=== PATIENT | female | born 1935 | race Caucasian/White ===

== ENCOUNTER 2016-03-31 15:42 | Outpatient (CLI) | payer MEDICARE ==
[2016-03-31 16:23] LABS: Anion Gap 12 mmol/L (10-20); BUN (Urea Nitrogen) 19 mg/dL (9.8-20.1); Calc. Creatinine Clearance 0 mL/min (70-130); Calcium 9.1 mg/dL (7.8-10.44); Carbon Dioxide 21 mmol/L (23-31); Chloride 108 mmol/L (98-107); Estimated GFR-MDRD 63
[2016-03-31 18:26] LABS: #Basophils 0.1 thou/uL (0.0-0.2); #Eosinphils 0.1 thou/uL (0.0-0.7); #Lymphocytes 2.1 thou/uL (1.20-3.40); #Monocytes 0.8 thou/uL (0.11-0.59); #Neutrophils 3.4 thou/uL (1.40-6.50); %Eosinophils 1.7 % (0.0-10.0); %Lymphocytes 32.3 % (21.0-51.0); %Monocytes 12.7 % (0.0-10.0); Hematocrit 35.2 % (36.0-47.0); Macrocytosis SLIGHT = 6-15 cells (100X) (0-5/hpf); Mean Platelet Volume 5.4 fL (7.4-10.4); Red Blood Cell (RBC) Count 3.24 mill/uL (4.20-5.40); White Blood Cell (WBC) Count 6.4 thou/uL (4.8-10.8)
== END 2016-03-31 15:43 | disposition home or self-care (01) ==
LOC: NAV LAB 15:42
PROVIDERS: ATTEND Family Medicine
DX: R09.89 Other specified symptoms and signs involving the circulatory and respiratory systems (principal)
CPT/HCPCS: 36415; 80048; 85025

== ENCOUNTER 2016-05-11 12:14 | Outpatient (CLI) | payer MEDICARE | END 2016-05-11 12:15 | disposition home or self-care (01) | LOC: NAV LAB 12:14 | PROVIDERS: ATTEND Family Medicine | DX: E27.49 Other adrenocortical insufficiency (principal); M06.9 Rheumatoid arthritis, unspecified | CPT/HCPCS: 36415; 82533; 86038; 86200; 86430 ==

== ENCOUNTER 2016-07-17 11:10 | Inpatient (IN) | payer MEDICARE ==
[2016-07-17] MEDS ORDERED: Ondansetron ODT 4 MG TAB PO PRN ×2 (12:39→12:43)
[2016-07-17] MEDS ORDERED: Bisacodyl 5 MG TAB PO PRN (12:39)
[2016-07-17] MEDS ORDERED: Polyethylene Glycol 3350 17 GM Packet PO PRN (12:43)
[2016-07-17] MEDS ORDERED: Calcium Carbonate 500 MG ChewTAB PO PRN (12:43)
[2016-07-17] MEDS ORDERED: Acetaminophen 325 MG TAB PO PRN (12:43)
[2016-07-17] MEDS ORDERED: Nitroglycerin 0.4 MG TAB (25 Tab Bottle) SL PRN (12:43)
[2016-07-17] MEDS ORDERED: Simethicone Chewable 80 MG TAB PO PRN (12:43)
[2016-07-17] MEDS ORDERED: Bisacodyl 10 MG SUPP PR PRN (12:43)
[2016-07-17] MEDS ORDERED: Milk Of Magnesia 30 ML UDCUP PO PRN (12:43)
[2016-07-17] MEDS: HYDROcodone/Acetaminophen 5/325 mg Tablet PO SCH ×2 (14:17→21:01)
[2016-07-17] MEDS: Cyproheptadine 4 MG TAB PO SCH (16:39)
[2016-07-17] MEDS: Carvedilol 6.25 MG TAB PO SCH (16:40)
[2016-07-17] MEDS: CeleCOXIB 100 MG CAP PO SCH (20:50)
[2016-07-17] MEDS: Docusate 100 MG CAP PO SCH ×2 (20:50)
[2016-07-17] MEDS: Famotidine 20 MG TAB PO SCH (20:50)
[2016-07-17] MEDS: Lisinopril 10 MG TAB PO SCH (20:51)
[2016-07-17] MEDS: Megestrol Acetate 800 MG/20 ML UDCUP PO SCH (20:57)
[2016-07-18 05:09] LABS: Eosinophils 2 % (0-10); Hemoglobin 9.5 g/dL (12.0-16.0); Lymphocytes 26 % (21-51); MDiff Complete? YES; Macrocytosis MODERATE=16-30 cells (100X) (0-5/hpf); Mean Corpuscular HGB CONC 33.4 g/dL (32.0-36.0); Mean Corpuscular Hemoglobin 35.8 pg (27.0-31.0); Monocytes 10 % (0-10); Neutrophil 62 % (42-75); PLT Morphology Comment Appears Adequate; Platelet Count 170 thou/uL (130-400); RBC Distribution Width 11.5 % (11.5-14.5); Red Blood Cell (RBC) Count 2.65 mill/uL (4.20-5.40); White Blood Cell (WBC) Count 7.8 thou/uL (4.8-10.8)
[2016-07-18 05:25] LABS: ALT (SGPT) 19 U/L (8-55); AST (SGOT) 16 U/L (5-34); Albumin 2.7 g/dL (3.4-4.8); Alkaline Phosphatase 35 U/L (40-150); Anion Gap 12 mmol/L (10-20); BUN (Urea Nitrogen) 46 mg/dL (9.8-20.1); Bilirubin, Total 0.4 mg/dL (0.2-1.2); Calc. Creatinine Clearance 47 mL/min (70-130); Calcium 8.6 mg/dL (7.8-10.44); Carbon Dioxide 25 mmol/L (23-31); Chloride 108 mmol/L (98-107); Estimated GFR-MDRD 76; Globulin 2.6 g/dL (2.4-3.5); Glucose 95 mg/dL (83-110); Potassium 4.5 mmol/L (3.5-5.1); Protein, Total 5.3 g/dL (6.0-8.3); Sodium 140 mmol/L (136-145)
[2016-07-18] MEDS: Levothyroxine Sodium 100 MCG TAB PO SCH (05:32)
[2016-07-18] MEDS: Carvedilol 6.25 MG TAB PO SCH ×2 (08:00→17:04)
[2016-07-18] MEDS: Cyproheptadine 4 MG TAB PO SCH ×2 (08:01→17:04)
[2016-07-18] MEDS ORDERED: Hydrocortisone 10 mg Tablet PO SCH (09:00)
[2016-07-18] MEDS: Multivitamin W/ Minerals 1 TAB PO SCH (09:24)
[2016-07-18] MEDS: Docusate 100 MG CAP PO SCH ×3 (09:24→20:58)
[2016-07-18] MEDS: CeleCOXIB 100 MG CAP PO SCH ×2 (09:25→20:57)
[2016-07-18] MEDS: Aspirin 325 MG TAB PO SCH (09:25)
[2016-07-18] MEDS: Famotidine 20 MG TAB PO SCH ×2 (09:25→20:58)
[2016-07-18] MEDS: Lisinopril 10 MG TAB PO SCH ×2 (09:26→20:59)
[2016-07-18] MEDS: Megestrol Acetate 800 MG/20 ML UDCUP PO SCH ×2 (09:27→20:59)
[2016-07-18] MEDS: HYDROcodone/Acetaminophen 5/325 mg Tablet PO SCH ×3 (09:27→20:58)
--- NOTE | 2016-07-19 02:47 | HP ---
DATE OF SERVICE: 07/18/2016 CHIEF COMPLAINT: Persistent weakness. BRIEF HISTORY: This is a very pleasant, 81-year-old, female, who was admitted to [facility] with deconditioning, protein-calorie malnutrition, chronic adrenal insufficiency, and h yponatremia. Her hyponatremia pretty much resolved. Her chronic adrenal insufficiency was being ma naged with hydrocortisone supplementation, and her nutritional status improved with dietary consult and nutritional support. She continued to have significant flat affect and was noticed to be on ser traline and initially was started on citalopram. Then, I noticed that she was on sertraline and the citalopram was discontinued, and the sertraline dose was increased to 100 mg. Then, because of her neuropathy, she was also on Cymbalta 30 mg, so her sertraline was also discontinued, and her Cymbal ta was increased to 60. Currently, she states that she is doing better. She is tolerating her diet , denies any complaints, denies any lightheadedness or dizziness, and is mainly here for therapy. PAST MEDICAL HISTORY: 1. Chronic adrenal insufficiency. 2. Resolved hyponatremia. 3. Hypertension. 4. Hypothyroidism. 5. Protein-calorie malnutrition. 6. Depression. 7. Chronic pain. PAST SURGICAL HISTORY: 1. Hysterectomy. 2. Right humerus fracture repair. 3. Kyphoplasty. ALLERGIES: No known drug allergies. PSYCHOSOCIAL HISTORY: She apparently is , but is not having any support from her . I had a long discussion with her [id number]-txr, and apparently, she will be the one who will be hel ping to take care of her when she is discharged. No tobacco or alcohol abuse. FAMILY HISTORY: Noncontributory to current admission. REVIEW OF SYSTEMS: CARDIOVASCULAR: Denies any chest pain, shortness of breath, palpitations, paroxysmal nocturnal dysp ruma, orthopnea, pedal edema. RESPIRATORY: Denies any chronic cough, expectoration, or pleuritic type chest pain. GASTROINTESTINAL: Denies any nausea, vomiting, diarrhea, constipation, hematemesis, melena, hematoc hezia. GENITOURINARY: Denies any frequency, urgency, dysuria or hematuria. CYCLE MANAGER: No focal numbness, weakness, fainting spells. CURRENT MEDICATIONS: She has been admitted with the following medications: Tylenol 650 q.4 p.r.n., hydrocodone 5/325 one tablet t.i.d., amlodipine 2.5 mg daily, aspirin 325 daily, Colace 10 mg b.i.d . daily p.r.n., calcium 1000 mg q.i.d. p.r.n., carvedilol 12.5 mg b.i.d., Celebrex 100 mg b.i.d., Pe riactin 4 mg b.i.d., Cymbalta 60 mg daily, Pepcid 20 mg b.i.d., hydrocortisone 10 mg b.i.d., Levoxyl 100 mcg daily, lisinopril 10 mg b.i.d., Megace 400 mg b.i.d., Protonix 40 mg daily, MiraLax 17 gram s in 8 ounces of water daily, simethicone 80 mg p.o. at bedtime. PHYSICAL EXAMINATION: GENERAL: On examination, pleasant, 81-year-old, female, resting comfortably, in no acute distress. She responds appropriate to questions. She is alert, awake, and oriented x3. VITAL SIGNS: She is afebrile, heart rate is 74, respirations 18, oxygen saturation 97%, blood press ure is 155/72. HEENT: Normocephalic, atraumatic. Pupils are equal and reactive to light and accommodation. Extra ocular muscles are intact. NECK: No JVD, thyromegaly, cervical adenopathy, throat exudates, or carotid bruits. CARDIOVASCULAR: S1, S2 plus, rate and rhythm regular. RESPIRATORY SYSTEM: Normal vesicular breath sounds heard in all lung nick. ABDOMEN: Soft, nontender, bowel sounds heard in all quadrants. EXTREMITIES: Without cyanosis or clubbing. CENTRAL NERVOUS SYSTEM: Generalized weakness. LABORATORY VALUES: White count 7.8, H\T\H is 9.5 and 28.4, this was this morning. Sodium 140, pota ssium 4.5, BUN and creatinine is 46 and 0.74. Albumin is 2.7. IMPRESSION: 1. Chronic adrenal insufficiency. 2. Resolved hyponatremia. 3. Hypertension. 4. Hypothyroidism. 5. Chronic pain. 6. Depression. 7. Improving malnutrition. PLAN: 1. Continue physical therapy and occupational therapy. 2. Nutritional support. 3. Continue current medications. 4. DVT and stress ulcer prophylaxis. 5. Decubitus precautions. 6. Routine laboratory values. 7. PT/OT consult, evaluate, and treat. 8. No family at the bedside.
[2016-07-19] MEDS: Levothyroxine Sodium 100 MCG TAB PO SCH (05:37)
[2016-07-19] MEDS: Carvedilol 6.25 MG TAB PO SCH ×2 (07:28→16:59)
[2016-07-19] MEDS: Cyproheptadine 4 MG TAB PO SCH ×2 (07:29→16:59)
[2016-07-19] MEDS: Megestrol Acetate 800 MG/20 ML UDCUP PO SCH ×2 (09:02→20:41)
[2016-07-19] MEDS: Famotidine 20 MG TAB PO SCH ×2 (09:05→20:40)
[2016-07-19] MEDS: CeleCOXIB 100 MG CAP PO SCH ×2 (09:06→20:40)
[2016-07-19] MEDS: Aspirin 325 MG TAB PO SCH (09:06)
[2016-07-19] MEDS: HYDROcodone/Acetaminophen 5/325 mg Tablet PO SCH ×3 (09:07→20:40)
[2016-07-19] MEDS: Lisinopril 10 MG TAB PO SCH ×2 (09:07→20:41)
[2016-07-19] MEDS: Multivitamin W/ Minerals 1 TAB PO SCH (09:08)
[2016-07-19] MEDS: Docusate 100 MG CAP PO SCH ×2 (09:08→20:40)
--- NOTE | 2016-07-19 13:48 | PRG ---
DATE OF SERVICE: 07/19/2016 SUBJECTIVE: Ms. Pickering is resting. She is arousable. She denies any complaints. Discussed with nursing and no concerns. OBJECTIVE: VITAL SIGNS: She is afebrile. Heart rate is 78, respirations are 15, oxygen saturation is 96% and blood pressure is 137/68. CARDIOVASCULAR SYSTEM: S1 and S2 plus. RESPIRATORY SYSTEM: Normal vesicular breath sounds. ABDOMEN: Soft and nontender. Bowel sounds are heard in all quadrants. EXTREMITIES: Without cyanosis or clubbing. Peripheral pulses are palpable. CENTRAL NERVOUS SYSTEM: Grossly nonfocal. IMPRESSION: 1. Hyponatremia, which has resolved. 2. Chronic adrenal insufficiency. 3. Hypertension. 4. Depression. 5. Deconditioning. 6. Protein-calorie malnutrition. PLAN: 1. Continue current medications. 2. Nutritional support. 3. Deep venous thrombosis and stress ulcer prophylaxis. 4. Decubitus precautions. 5. Routine laboratory values. 6. No family at the bedside.
[2016-07-20] MEDS: Levothyroxine Sodium 100 MCG TAB PO SCH (06:14)
[2016-07-20] MEDS: Cyproheptadine 4 MG TAB PO SCH ×2 (08:07→16:55)
[2016-07-20] MEDS: Carvedilol 6.25 MG TAB PO SCH ×2 (08:07→16:55)
[2016-07-20] MEDS: Aspirin 325 MG TAB PO SCH (08:08)
[2016-07-20] MEDS: CeleCOXIB 100 MG CAP PO SCH ×2 (08:08→21:17)
[2016-07-20] MEDS: Docusate 100 MG CAP PO SCH ×2 (08:08→21:17)
[2016-07-20] MEDS: HYDROcodone/Acetaminophen 5/325 mg Tablet PO SCH ×3 (08:09→21:18)
[2016-07-20] MEDS: Famotidine 20 MG TAB PO SCH ×2 (08:09→21:17)
[2016-07-20] MEDS: Lisinopril 10 MG TAB PO SCH ×2 (08:11→21:17)
[2016-07-20] MEDS: Multivitamin W/ Minerals 1 TAB PO SCH (08:11)
[2016-07-20] MEDS: Megestrol Acetate 800 MG/20 ML UDCUP PO SCH ×2 (08:17→21:18)
[2016-07-21 01:16] LABS: Bilirubin Negative (Negative); Blood, Urine Negative (Negative); Clarity Clear (Clear); Glucose, Urine (Dipstick) Negative (Negative); Leukocyte Negative (Negative); Nitrite Negative (Negative); Protein, Urine (Dipstick) Negative (Neg-Trace)
[2016-07-21 01:41] LABS: RBC/HPF None Seen HPF (0-3)
[2016-07-21 01:42] LABS: Bacteria/HPF 3+ HPF (None Seen); Squamous Epithelial None Seen HPF (0-3)
[2016-07-21] MEDS: Levothyroxine Sodium 100 MCG TAB PO SCH (06:33)
[2016-07-21] MEDS: Cyproheptadine 4 MG TAB PO SCH ×2 (06:33→16:47)
[2016-07-21] MEDS: Carvedilol 6.25 MG TAB PO SCH ×2 (07:54→16:47)
[2016-07-21] MEDS: HYDROcodone/Acetaminophen 5/325 mg Tablet PO SCH ×3 (07:55→20:32)
[2016-07-21] MEDS: Lisinopril 10 MG TAB PO SCH ×2 (07:58→20:33)
[2016-07-21] MEDS: CeleCOXIB 100 MG CAP PO SCH ×2 (08:26→20:33)
[2016-07-21] MEDS: Aspirin 325 MG TAB PO SCH (08:26)
[2016-07-21] MEDS: Docusate 100 MG CAP PO SCH ×2 (08:26→20:32)
[2016-07-21] MEDS: Famotidine 20 MG TAB PO SCH ×2 (08:27→20:33)
[2016-07-21] MEDS: Megestrol Acetate 800 MG/20 ML UDCUP PO SCH ×2 (08:27→20:33)
[2016-07-21] MEDS: Multivitamin W/ Minerals 1 TAB PO SCH (08:27)
[2016-07-21] MEDS: Ergocalciferol 1.25 MG(50,000 UNITS) CAP PO SCH (08:33)
[2016-07-21] MEDS ORDERED: Bisacodyl 10 MG SUPP PR PRN (15:36)
[2016-07-21] MEDS ORDERED: Milk Of Magnesia 30 ML UDCUP PO PRN (15:36)
--- NOTE | 2016-07-22 00:17 | PRG ---
DATE OF SERVICE: 07/21/2016 SUBJECTIVE: Ms. Pickering is doing well. Still has a flat affect, still not doing much with the rapy. I had a long discussion with her, encouraged her to do more, so she can go home. OBJECTIVE: VITAL SIGNS: She is afebrile, heart rate is 78, respiratory rate 18, oxygen saturation 95%, blood p ressure this morning was 146/67. CARDIOVASCULAR: S1, S2 plus. RESPIRATORY: Normal vesicular breath sounds. ABDOMEN: Soft, nontender, bowel sounds heard in all quadrants. EXTREMITIES: Without cyanosis or clubbing. IMPRESSION: 1. Chronic adrenal insufficiency. 2. Hypertension. 3. Resolved hyponatremia. 4. Depression. 5. Improving protein-calorie malnutrition. 6. Chronic pain. PLAN: 1. Adjust blood pressure medications. 2. Increase Cymbalta to 60 mg b.i.d. 3. Encourage activity. 4. DVT and stress ulcer prophylaxis. 5. Decubitus precautions. 6. Routine laboratory values. 7. Dr. Davison construction supervisor this weekend.
[2016-07-22] MEDS: Levothyroxine Sodium 100 MCG TAB PO SCH (05:44)
[2016-07-22] MEDS: Cyproheptadine 4 MG TAB PO SCH ×2 (07:45→16:52)
[2016-07-22] MEDS: Megestrol Acetate 800 MG/20 ML UDCUP PO SCH ×2 (08:16→20:33)
[2016-07-22] MEDS: Aspirin 325 MG TAB PO SCH (08:17)
[2016-07-22] MEDS: Carvedilol 6.25 MG TAB PO SCH ×2 (08:17→16:52)
[2016-07-22] MEDS: HYDROcodone/Acetaminophen 5/325 mg Tablet PO SCH ×3 (08:17→20:33)
[2016-07-22] MEDS: Docusate 100 MG CAP PO SCH ×2 (08:19→20:34)
[2016-07-22] MEDS: Lisinopril 10 MG TAB PO SCH ×2 (08:19→20:33)
[2016-07-22] MEDS: Famotidine 20 MG TAB PO SCH ×2 (08:19→20:34)
[2016-07-22] MEDS: CeleCOXIB 100 MG CAP PO SCH ×2 (08:19→20:34)
[2016-07-22] MEDS: Multivitamin W/ Minerals 1 TAB PO SCH (08:19)
[2016-07-23] MEDS: Levothyroxine Sodium 100 MCG TAB PO SCH (05:42)
[2016-07-23] MEDS: Cyproheptadine 4 MG TAB PO SCH ×2 (08:00→16:30)
[2016-07-23] MEDS: Megestrol Acetate 800 MG/20 ML UDCUP PO SCH ×2 (08:33→20:40)
[2016-07-23] MEDS: Famotidine 20 MG TAB PO SCH ×2 (08:34→20:39)
[2016-07-23] MEDS: CeleCOXIB 100 MG CAP PO SCH ×2 (08:34→20:39)
[2016-07-23] MEDS: Lisinopril 10 MG TAB PO SCH ×2 (08:34→20:39)
[2016-07-23] MEDS: Docusate 100 MG CAP PO SCH ×2 (08:34→20:39)
[2016-07-23] MEDS: Multivitamin W/ Minerals 1 TAB PO SCH (08:35)
[2016-07-23] MEDS: Carvedilol 6.25 MG TAB PO SCH ×2 (08:35→17:57)
[2016-07-23] MEDS: HYDROcodone/Acetaminophen 5/325 mg Tablet PO SCH ×3 (08:35→20:40)
[2016-07-23] MEDS: Aspirin 325 MG TAB PO SCH (08:35)
--- NOTE | 2016-07-23 13:15 | PRG ---
DATE OF SERVICE: 07/23/2016 SUBJECTIVE: The patient was sitting up in chair and eating lunch, appears to be eaten 50% of meals. Still has somewhat depressed affect, but appears to be more responsive today. Does state she is t jah. She also has a history of significant hypertension, which has been somewhat labile, but she has had no symptoms of headaches, or dizziness and a history of adrenal insufficiency, resolved with supplementation. Her most recent medication changes including increase in Cymbalta to 60 mg twice daily for her depression, but her blood pressure medications have remained stable on carvedilol 12.5 mg twice daily, lisinopril 20 mg twice daily, and amlodipine 2.5 mg daily. Her adrenal insufficien cy has been treated with hydrocodone 10 mg twice daily, but she is not on any Florinef, does not chela ear to have any orthostatic hypotension. ASSESSMENT: 1. Labile hypertension increased today. We will increase amlodipine to 5 mg nightly. 2. Adrenal insufficiency with no evidence of recurrent hyponatremia. No evidence of orthostatic hy potension. We will check orthostatic blood pressure levels and we will repeat base met profile in t he a.m. 3. Depression. Appears to be slightly improved on increased Cymbalta. 4. Deconditioning, cooperating somewhat well with therapy and most recent physical therapy note sta luann that the patient walked 10 feet with a rolling walker, still complaining of weakness and pain, b ut was independent on bed transfers, toilet transfers, chair transfers. PLAN: Increase amlodipine to 5 mg daily. Check orthostatic blood pressure. Repeat basic metabolic profile in the a.m. Continue Cymbalta as ordered. ADDENDUM: The patient is walking much more, up to 120 feet, 70 feet, 64 feet, 71 feet, but has some problems w ith cognition and cueing and safety and is working on this.
[2016-07-24] MEDS: Levothyroxine Sodium 100 MCG TAB PO SCH (05:51)
[2016-07-24] MEDS: Cyproheptadine 4 MG TAB PO SCH ×2 (08:00→16:20)
[2016-07-24] MEDS: Carvedilol 6.25 MG TAB PO SCH ×2 (08:00→16:20)
--- NOTE | 2016-07-24 08:13 | PRG ---
DATE OF SERVICE: 07/24/2016 SUBJECTIVE: The patient is lying in the bed. Rested well through the night, but does have some inc reased soreness and stiffness this a.m. because of the change in the weather. OBJECTIVE: VITAL SIGNS: Shows blood pressure is 155/70, pulse 72, respirations 16, O2 sats 95%, afebrile. LUNGS: Clear. CARDIAC: Examination showed regular rhythm. No gallops or murmurs. ABDOMEN: Soft and nontender. SKIN AND EXTREMITIES: Show no edema. ASSESSMENT: 1. Stable hypertension. 2. Chronic adrenal insufficiency with resolved hyponatremia, stable. 3. Depression, possibly slowly improving. 4. Chronic pain, on Cymbalta. Will give ibuprofen today. 5. Malnutrition with increased appetite. PLAN: Ibuprofen 400 every 4 hours as needed for pain. Continue to stress up out of the bed, walkin g today. Continue DVT and stress ulcer prophylaxis. Continue Cymbalta [address] Maribell mike to be back tomorrow.
[2016-07-24] MEDS: CeleCOXIB 100 MG CAP PO SCH ×2 (09:02→20:01)
[2016-07-24] MEDS: Famotidine 20 MG TAB PO SCH ×2 (09:02→20:01)
[2016-07-24] MEDS: Aspirin 325 MG TAB PO SCH (09:02)
[2016-07-24] MEDS: Docusate 100 MG CAP PO SCH ×2 (09:02→20:01)
[2016-07-24] MEDS: Multivitamin W/ Minerals 1 TAB PO SCH (09:03)
[2016-07-24] MEDS: HYDROcodone/Acetaminophen 5/325 mg Tablet PO SCH ×3 (09:03→20:00)
[2016-07-24] MEDS: Megestrol Acetate 800 MG/20 ML UDCUP PO SCH ×2 (09:03→20:01)
[2016-07-24] MEDS: Lisinopril 10 MG TAB PO SCH ×2 (09:04→20:01)
[2016-07-24 16:55] LABS: Anion Gap 13 mmol/L (10-20); BUN (Urea Nitrogen) 35 mg/dL (9.8-20.1); Calc. Creatinine Clearance 44 mL/min (70-130); Calcium 8.2 mg/dL (7.8-10.44); Carbon Dioxide 22 mmol/L (23-31); Chloride 112 mmol/L (98-107); Estimated GFR-MDRD 71; Glucose 120 mg/dL (83-110); Potassium 4.5 mmol/L (3.5-5.1); Sodium 142 mmol/L (136-145)
[2016-07-25] MEDS: Levothyroxine Sodium 100 MCG TAB PO SCH (05:47)
[2016-07-25] MEDS: Cyproheptadine 4 MG TAB PO SCH ×2 (07:36→16:40)
[2016-07-25] MEDS: Carvedilol 6.25 MG TAB PO SCH ×2 (07:36→16:40)
[2016-07-25] MEDS: Lisinopril 10 MG TAB PO SCH ×2 (07:36→20:12)
[2016-07-25] MEDS: Aspirin 325 MG TAB PO SCH (08:00)
[2016-07-25] MEDS: Docusate 100 MG CAP PO SCH ×2 (08:01→20:13)
[2016-07-25] MEDS: CeleCOXIB 100 MG CAP PO SCH ×2 (08:01→20:12)
[2016-07-25] MEDS: HYDROcodone/Acetaminophen 5/325 mg Tablet PO SCH ×3 (08:02→20:11)
[2016-07-25] MEDS: Famotidine 20 MG TAB PO SCH ×2 (08:02→20:13)
[2016-07-25] MEDS: Megestrol Acetate 800 MG/20 ML UDCUP PO SCH ×2 (08:03→20:13)
[2016-07-25] MEDS: Multivitamin W/ Minerals 1 TAB PO SCH (08:03)
[2016-07-26] MEDS: Levothyroxine Sodium 100 MCG TAB PO SCH (05:57)
[2016-07-26] MEDS: Cyproheptadine 4 MG TAB PO SCH ×2 (07:40→16:30)
[2016-07-26] MEDS: Carvedilol 6.25 MG TAB PO SCH ×2 (08:08→17:31)
[2016-07-26] MEDS: HYDROcodone/Acetaminophen 5/325 mg Tablet PO SCH ×3 (08:42→20:12)
[2016-07-26] MEDS: Lisinopril 10 MG TAB PO SCH ×2 (08:44→20:11)
[2016-07-26] MEDS: Aspirin 325 MG TAB PO SCH (08:44)
[2016-07-26] MEDS: Multivitamin W/ Minerals 1 TAB PO SCH (08:45)
[2016-07-26] MEDS: Famotidine 20 MG TAB PO SCH ×2 (08:45→20:12)
[2016-07-26] MEDS: CeleCOXIB 100 MG CAP PO SCH ×2 (08:45→20:32)
[2016-07-26] MEDS: Megestrol Acetate 800 MG/20 ML UDCUP PO SCH ×2 (08:46→20:10)
[2016-07-26] MEDS: Docusate 100 MG CAP PO SCH ×2 (08:46→20:10)
--- NOTE | 2016-07-26 13:42 | PRG ---
DATE OF SERVICE: 07/26/2016 SUBJECTIVE: Ms. Pickering is doing well, denies any complaints, resting comfortably. She is up in her wheelchair. Her [id number] is here. They can reinforced the need for her to really wor k with therapy, otherwise she will need to be discharged to a shelter facility. Therapy not es from this morning; she walked about 120 feet, had 2 breaks, about 4 minutes each. They documente d gait is slow and unsteady. The plan is to continue therapy because she has not met any of her goa ls yet. OBJECTIVE: VITAL SIGNS: She is afebrile, heart rate is 83, respirations 20, oxygen saturation is 93%, blood pr essure was this morning 183/81 at 8:08, after her blood pressure medicines 145/76. CARDIOVASCULAR: S1, S2 plus. RESPIRATORY: Normal vesicular breath sounds. ABDOMEN: Soft, nontender, bowel sounds heard in all quadrants. EXTREMITIES: Without cyanosis or clubbing. IMPRESSION: 1. Hypertension, not well controlled. 2. Depression. We will increase Cymbalta to b.i.d. 3. Deconditioning. 4. Chronic adrenal insufficiency. 5. Resolved hyponatremia. 6. Hypertension. PLAN: 1. Increase her amlodipine at night from 2.5 to 10 mg. 2. Continue carvedilol b.i.d. 3. She is on lisinopril 20 b.i.d. 4. Low sodium diet. 5. Increase Cymbalta for her depression. 6. Physical therapy. 7. Routine laboratory values. 8. Discussed with [id number] in detail and all questions answered.
[2016-07-27] MEDS: Levothyroxine Sodium 100 MCG TAB PO SCH (05:01)
[2016-07-27 05:50] LABS: Anion Gap 14 mmol/L (10-20); BUN (Urea Nitrogen) 30 mg/dL (9.8-20.1); Calc. Creatinine Clearance 46 mL/min (70-130); Calcium 8.7 mg/dL (7.8-10.44); Carbon Dioxide 23 mmol/L (23-31); Chloride 108 mmol/L (98-107); Estimated GFR-MDRD 76; Glucose 100 mg/dL (83-110); Potassium 4.5 mmol/L (3.5-5.1); Sodium 140 mmol/L (136-145)
[2016-07-27 05:58] LABS: #Basophils 0.1 thou/uL (0.0-0.2); #Eosinphils 0.1 thou/uL (0.0-0.7); #Neutrophils 8.1 thou/uL (1.40-6.50); %Basophils 0.5 % (0.0-1.0); %Eosinophils 0.5 % (0.0-10.0); %Lymphocytes 17.6 % (21.0-51.0); %Monocytes 9.2 % (0.0-10.0); %Neutrophils 72.2 % (42.0-75.0); Hemoglobin 11.5 g/dL (12.0-16.0); MDiff Complete? YES; Macrocytosis MARKED = >30 cells (100X) (0-5/hpf); Mean Corpuscular HGB CONC 31.9 g/dL (32.0-36.0); Mean Corpuscular Hemoglobin 34.5 pg (27.0-31.0); Mean Platelet Volume 6.7 fL (7.4-10.4); PLT Morphology Comment Appears Adequate; Platelet Count 215 thou/uL (130-400); RBC Distribution Width 11.8 % (11.5-14.5); Red Blood Cell (RBC) Count 3.34 mill/uL (4.20-5.40); White Blood Cell (WBC) Count 11.2 thou/uL (4.8-10.8)
[2016-07-27] MEDS: Docusate 100 MG CAP PO SCH ×2 (08:09→20:39)
[2016-07-27] MEDS: Megestrol Acetate 800 MG/20 ML UDCUP PO SCH ×2 (08:09→20:41)
[2016-07-27] MEDS: Famotidine 20 MG TAB PO SCH ×2 (08:09→20:40)
[2016-07-27] MEDS: CeleCOXIB 100 MG CAP PO SCH ×2 (08:10→20:39)
[2016-07-27] MEDS: Cyproheptadine 4 MG TAB PO SCH ×2 (08:10→16:17)
[2016-07-27] MEDS: HYDROcodone/Acetaminophen 5/325 mg Tablet PO SCH ×3 (08:10→20:40)
[2016-07-27] MEDS: Multivitamin W/ Minerals 1 TAB PO SCH (08:10)
[2016-07-27] MEDS: Aspirin 325 mg Enteric Coated Tablet PO SCH (08:10)
[2016-07-27] MEDS: Carvedilol 6.25 MG TAB PO SCH ×2 (08:14→16:17)
[2016-07-27] MEDS: Lisinopril 10 MG TAB PO SCH ×2 (08:15→20:41)
[2016-07-28] MEDS: Levothyroxine Sodium 100 MCG TAB PO SCH (06:07)
[2016-07-28] MEDS: Aspirin 325 mg Enteric Coated Tablet PO SCH (08:22)
[2016-07-28] MEDS: Megestrol Acetate 800 MG/20 ML UDCUP PO SCH ×2 (08:22→20:35)
[2016-07-28] MEDS: CeleCOXIB 100 MG CAP PO SCH ×2 (08:22→20:33)
[2016-07-28] MEDS: Docusate 100 MG CAP PO SCH ×2 (08:23→20:33)
[2016-07-28] MEDS: Cyproheptadine 4 MG TAB PO SCH ×2 (08:23→17:23)
[2016-07-28] MEDS: Carvedilol 6.25 MG TAB PO SCH ×2 (08:23→17:23)
[2016-07-28] MEDS: Famotidine 20 MG TAB PO SCH ×2 (08:23→20:34)
[2016-07-28] MEDS: Multivitamin W/ Minerals 1 TAB PO SCH (08:23)
[2016-07-28] MEDS: HYDROcodone/Acetaminophen 5/325 mg Tablet PO SCH ×3 (08:24→20:34)
[2016-07-28] MEDS: Lisinopril 10 MG TAB PO SCH ×2 (08:24→20:35)
[2016-07-28] MEDS: Ergocalciferol 1.25 MG(50,000 UNITS) CAP PO SCH (08:29)
--- NOTE | 2016-07-28 13:33 | PRG ---
DATE OF SERVICE: 07/28/2016 SUBJECTIVE: Ms. Pickering is doing better. She denies any complaints. She is up in a wheelchai r. She has been ambulating. She denies any concerns or questions. She states that she is eating b davonte. Discussed with nursing and no concerns. OBJECTIVE: VITAL SIGNS: She is afebrile, heart rate is 83, and respiration is 18, oxygen saturation 96%, blood pressure 175/81. CARDIOVASCULAR: S1, S2 plus. RESPIRATORY: Normal vesicular breath sounds. ABDOMEN: Soft, nontender, bowel sounds heard in all quadrants. EXTREMITIES: Without cyanosis or clubbing. LABORATORY DATA: Her white count is 11.2, H\T\H is 11.5 and 36.1, improved from 9.5. Sodium 140, p otassium 4.5, BUN and creatinine is 30 and 0.74. IMPRESSION: 1. Hypertension, not well controlled. 2. Chronic adrenal insufficiency. 3. Resolved hyponatremia. 4. Improving deconditioning. 5. Improving depression. PLAN: 1. Adjust blood pressure medications, she is on Norvasc 10 mg at night that was increased 2 days ag o, carvedilol 12.5 b.i.d., and lisinopril 20 b.i.d. I am going to increase her carvedilol to 25 b.i .d. 2. Continue heart healthy diet. 3. Physical therapy. 4. Nutritional support. 5. Continue to monitor Routine laboratory values. 6. Deep venous thrombosis and stress ulcer prophylaxis. 7. No family at the bedside.
[2016-07-29] MEDS: Levothyroxine Sodium 100 MCG TAB PO SCH (05:28)
[2016-07-29] MEDS: Docusate 100 MG CAP PO SCH ×2 (09:00→20:37)
[2016-07-29] MEDS: Megestrol Acetate 800 MG/20 ML UDCUP PO SCH ×2 (09:00→20:37)
[2016-07-29] MEDS: CeleCOXIB 100 MG CAP PO SCH ×2 (09:00→20:37)
[2016-07-29] MEDS: Multivitamin W/ Minerals 1 TAB PO SCH (09:00)
[2016-07-29] MEDS: Famotidine 20 MG TAB PO SCH ×2 (09:00→20:37)
[2016-07-29] MEDS: Cyproheptadine 4 MG TAB PO SCH ×2 (09:00→16:30)
[2016-07-29] MEDS: Carvedilol 6.25 MG TAB PO SCH ×2 (09:00→17:00)
[2016-07-29] MEDS: Aspirin 325 mg Enteric Coated Tablet PO SCH (09:00)
[2016-07-29] MEDS: HYDROcodone/Acetaminophen 5/325 mg Tablet PO SCH ×3 (09:00→21:22)
[2016-07-29] MEDS: Lisinopril 10 MG TAB PO SCH ×2 (09:05→20:38)
[2016-07-30 01:08] LABS: Bilirubin Negative (Negative); Blood, Urine Negative (Negative); Clarity Slightly Cloudy (Clear); Glucose, Urine (Dipstick) Negative (Negative); Leukocyte Negative (Negative); Nitrite Positive (Negative); Protein, Urine (Dipstick) Negative (Neg-Trace)
[2016-07-30 01:10] LABS: Bacteria/HPF 4+ HPF (None Seen); RBC/HPF None Seen HPF (0-3); Squamous Epithelial 0-3 HPF (0-3); WBC/HPF 0-3 HPF (0-3)
[2016-07-30] MEDS: Levothyroxine Sodium 100 MCG TAB PO SCH (05:58)
[2016-07-30] MEDS: Cyproheptadine 4 MG TAB PO SCH ×2 (07:51→16:56)
[2016-07-30] MEDS: Carvedilol 6.25 MG TAB PO SCH ×2 (07:52→16:56)
[2016-07-30] MEDS: Aspirin 325 mg Enteric Coated Tablet PO SCH (08:17)
[2016-07-30] MEDS: Docusate 100 MG CAP PO SCH ×2 (08:17→20:21)
[2016-07-30] MEDS: CeleCOXIB 100 MG CAP PO SCH ×2 (08:17→20:21)
[2016-07-30] MEDS: HYDROcodone/Acetaminophen 5/325 mg Tablet PO SCH ×3 (08:17→20:24)
[2016-07-30] MEDS: Famotidine 20 MG TAB PO SCH ×2 (08:17→20:23)
[2016-07-30] MEDS: Lisinopril 10 MG TAB PO SCH ×2 (08:18→20:22)
[2016-07-30] MEDS: Multivitamin W/ Minerals 1 TAB PO SCH (08:19)
[2016-07-30] MEDS: Megestrol Acetate 800 MG/20 ML UDCUP PO SCH ×2 (08:19→20:24)
[2016-07-31] MEDS: Levothyroxine Sodium 100 MCG TAB PO SCH (07:28)
[2016-07-31] MEDS: Carvedilol 6.25 MG TAB PO SCH ×2 (07:29→16:28)
[2016-07-31] MEDS: Cyproheptadine 4 MG TAB PO SCH ×2 (07:29→16:28)
[2016-07-31] MEDS: Lisinopril 10 MG TAB PO SCH ×2 (07:30→21:03)
[2016-07-31] MEDS: Aspirin 325 mg Enteric Coated Tablet PO SCH (08:19)
[2016-07-31] MEDS: HYDROcodone/Acetaminophen 5/325 mg Tablet PO SCH ×3 (08:20→21:05)
[2016-07-31] MEDS: CeleCOXIB 100 MG CAP PO SCH ×2 (08:20→21:02)
[2016-07-31] MEDS: Docusate 100 MG CAP PO SCH ×2 (08:20→21:02)
[2016-07-31] MEDS: Famotidine 20 MG TAB PO SCH ×2 (08:20→21:03)
[2016-07-31] MEDS: Multivitamin W/ Minerals 1 TAB PO SCH (08:21)
[2016-07-31] MEDS: Megestrol Acetate 800 MG/20 ML UDCUP PO SCH ×2 (08:21→21:05)
[2016-07-31 17:52] VITALS: BMI 17.0
--- NOTE | 2016-08-01 01:40 | PRG ---
DATE OF SERVICE: 07/31/2016 HISTORY OF PRESENT ILLNESS: Ms. Sy is a very pleasant 81-year-old female that was transferred from [facility] for continued physical therapy and management of her chronic adrenal insufficiency or hypertension, malnutrition, and depression with chronic pain. OBJECTIVE: The patient states she is doing somewhat better, is began to eat better. Her vital sign s reveal blood pressure this evening is 129/58, pulse 75, respirations 20, O2 sat is 95%. Temperatu re max of 98.1. PHYSICAL EXAMINATION: GENERAL: This is a well-developed, well-nourished, thin white female in no apparent distress at thi s time. HEENT: Reveals normocephalic, nontraumatic cranium. Pupils are equally round and reactive. Extrao cular movements intact. Nose and throat are slightly dry. NECK: Supple, without masses, nodes or bruits. CHEST: Clear to auscultation. She has shallow breath sounds. No rales or rhonchi or wheezes are h eard. HEART: Reveals a regular rate and rhythm without murmurs, gallops, or rubs. ABDOMEN: Scaphoid, soft, nontender, without organomegaly. Normal bowel sounds are heard in all 4 q uadrants. GENITOURINARY EXAM: Deferred. EXTREMITIES: Reveal no clubbing, cyanosis or edema. ASSESSMENT: 1. Hypertension. 2. Hyponatremia, resolved. 3. Chronic renal insufficiency. 4. Generalized weakness with deconditioning. 5. Depression, which is slowly getting better. PLAN: 1. Continue to follow the patient's blood pressure. Carvedilol was increased to 25 mg b.i.d. a cou ple days ago. 2. Continue physical therapy and occupational therapy. 3. Continue to encourage the patient to eat better. 4. Continue healthy heart diet. 5. Continue to monitor the patient's labs as needed. 6. Continue DVT and stress ulcer prophylaxis. 7. Continued decubitus precautions. 8. No family is with her today.
--- NOTE | 2016-08-01 02:11 | PRG ---
DATE OF SERVICE: 07/30/2016 DATE OF ADMISSION: 07/17/2016 HISTORY OF PRESENT ILLNESS: Ms. Pickering is a very pleasant 81-year-old white female that was t r[facility]ferred from [facility] to [facility] for continued swing bed for physi jyothi therapy and occupational therapy. She was transferred under the care of Dr. Killian pacheco. He is watching her hypertension, hypothyroidism, chronic adrenal insufficiency, chronic pain, and de pression. She also has significant generalized weakness. Patient has had no complaints. She states she is gradually getting a little bit stronger, but her a ppetite is still very poor. PHYSICAL EXAMINATION: VITAL SIGNS: Revealed blood pressure was not available for the morning of , so we used the even ing of the , which was 122/57 with a pulse of 78-96, respirations 18, temperature 97.9. GENERAL: This is a well-developed, well-nourished, very thin white female, in no apparent distress. HEENT: Reveals normocephalic, nontraumatic cranium. Pupils are equally round. Nose and throat are slightly dry. NECK: Supple, without masses, nodes, or bruits. CHEST: Clear to auscultation. No rales, no rhonchi, no wheezes are heard. HEART: Reveals a regular rate and rhythm without murmurs, gallops, or rubs. ABDOMEN: Scaphoid, soft, nontender, without organomegaly. Normal bowel sounds are noted. GENITOURINARY: Deferred. EXTREMITIES: Reveal no clubbing, cyanosis, or edema, just generalized weakness. No labs were done. ASSESSMENT: 1. Hypertension, controlled at this time. 2. Chronic adrenal insufficiency. 3. Generalized weakness. 4. Hyponatremia, which has resolved. 5. Depression. PLAN: 1. Continue to follow the patient's blood pressure. At this time, Dr. Carrasco has adjusted her medic ations. We will leave it like that for about a week. 2. Continue physical therapy and occupational therapy. 3. Encourage the patient to eat because her nutrition is poor. 4. Continue DVT and stress ulcer prophylaxis. 5. Continue decubitus precautions.
[2016-08-01] MEDS: Levothyroxine Sodium 100 MCG TAB PO SCH (05:25)
[2016-08-01] MEDS: Carvedilol 6.25 MG TAB PO SCH ×2 (07:33→16:50)
[2016-08-01] MEDS: Cyproheptadine 4 MG TAB PO SCH ×2 (07:33→16:50)
[2016-08-01] MEDS: Docusate 100 MG CAP PO SCH ×2 (08:41→20:14)
[2016-08-01] MEDS: Lisinopril 10 MG TAB PO SCH ×2 (08:41→20:15)
[2016-08-01] MEDS: Aspirin 325 mg Enteric Coated Tablet PO SCH (08:41)
[2016-08-01] MEDS: Famotidine 20 MG TAB PO SCH ×2 (08:42→20:14)
[2016-08-01] MEDS: Megestrol Acetate 800 MG/20 ML UDCUP PO SCH ×2 (08:42→20:15)
[2016-08-01] MEDS: Multivitamin W/ Minerals 1 TAB PO SCH (08:42)
[2016-08-01] MEDS: CeleCOXIB 100 MG CAP PO SCH ×2 (08:42→20:14)
[2016-08-01] MEDS: HYDROcodone/Acetaminophen 5/325 mg Tablet PO SCH ×3 (08:46→20:14)
--- NOTE | 2016-08-01 18:14 | PRG ---
DATE OF ADMISSION: 07/17/2016 DATE OF PROGRESS NOTE: 08/01/2016 HISTORY OF PRESENT ILLNESS: Ms. Pickering is a very pleasant 81-year-old white female transferre d from [facility] for continued physical therapy and management of her chronic adren al insufficiency, hypertension, malnutrition, depression, and chronic pain. The patient states she is feeling somewhat better. Her pain is gradually getting better and she is less anxious and able to participate more. She has no complaints today. PHYSICAL EXAMINATION: VITAL SIGNS: Today reveal blood pressure this morning was 122/64, pulse 85-95, respirations 18, O2 sat 96%, temperature max of 98.5. GENERAL: This is a well-developed, well-nourished, very thin white female in no apparent distress a t this time. HEENT: Reveals normocephalic and nontraumatic cranium. Pupils are equally round and reactive. Ext raocular movements intact. Nose and throat are slightly dry. NECK: Supple, without masses, nodes or bruits. CHEST: Clear to auscultation. The patient continues to have shallow breath sounds. No rales, no r honchi, no wheezes or cough is heard. HEART: Reveals a regular rate and rhythm without murmurs, gallops or rubs. ABDOMEN: Scaphoid, soft, nontender, without organomegaly. Normal bowel sounds are noted in all 4 q uadrants. No rebound or guarding is noted. GENITOURINARY: Deferred. EXTREMITIES: Reveal no clubbing, cyanosis or edema. IMPRESSION: 1. Hypertension. 2. Hyponatremia, resolved. 3. Chronic renal insufficiency. 4. Generalized weakness and deconditioning. 5. Depression, which is slowly getting better. 6. Chronic pain, which is slowly getting better. PLAN: 1. Continue to follow the patient's blood pressure closely. 2. Continue carvedilol 25 mg b.i.d. 3. Continue to follow with physical therapy and occupational therapy. 4. Continue to encourage the patient to eat better. 5. Continue healthy heart diet. 6. Continue to monitor the patient's labs as needed. 7. Continue DVT and stress ulcer prophylaxis. 8. Continue decubitus precautions. 9. The family is with her again today.
[2016-08-02 05:18] LABS: #Eosinphils 0.1 thou/uL (0.0-0.7); #Lymphocytes 1.9 thou/uL (1.20-3.40); #Monocytes 1.1 thou/uL (0.11-0.59); #Neutrophils 7.6 thou/uL (1.40-6.50); %Basophils 0.4 % (0.0-1.0); %Eosinophils 0.5 % (0.0-10.0); %Lymphocytes 17.8 % (21.0-51.0); %Monocytes 10.1 % (0.0-10.0); %Neutrophils 71.2 % (42.0-75.0); Elliptocytes SLIGHT = 2-5 cells (100X) (0-1/hpf); Hemoglobin 10.9 g/dL (12.0-16.0); MDiff Complete? YES; Mean Corpuscular HGB CONC 32.9 g/dL (32.0-36.0); Mean Corpuscular Hemoglobin 34.8 pg (27.0-31.0); Mean Platelet Volume 5.7 fL (7.4-10.4); Ovalocytes MODERATE= 6-15 cells (100X) (0-1/hpf); PLT Morphology Comment Appears Adequate; Platelet Count 181 thou/uL (130-400); RBC Distribution Width 11.8 % (11.5-14.5); Red Blood Cell (RBC) Count 3.13 mill/uL (4.20-5.40); Spherocytes SLIGHT = 1-5 cells (100X) (None Seen); White Blood Cell (WBC) Count 10.6 thou/uL (4.8-10.8)
[2016-08-02] MEDS: Levothyroxine Sodium 100 MCG TAB PO SCH (06:18)
[2016-08-02] MEDS: Cyproheptadine 4 MG TAB PO SCH ×2 (08:28→17:12)
[2016-08-02] MEDS: Multivitamin W/ Minerals 1 TAB PO SCH (08:29)
[2016-08-02] MEDS: Aspirin 325 mg Enteric Coated Tablet PO SCH (08:29)
[2016-08-02] MEDS: Docusate 100 MG CAP PO SCH ×2 (08:29→20:38)
[2016-08-02] MEDS: Famotidine 20 MG TAB PO SCH ×2 (08:29→20:38)
[2016-08-02] MEDS: CeleCOXIB 100 MG CAP PO SCH ×2 (08:29→20:38)
[2016-08-02] MEDS: Megestrol Acetate 800 MG/20 ML UDCUP PO SCH ×2 (08:30→20:38)
[2016-08-02] MEDS: HYDROcodone/Acetaminophen 5/325 mg Tablet PO SCH ×3 (08:30→20:39)
[2016-08-02] MEDS: Lisinopril 10 MG TAB PO SCH ×2 (08:30→20:38)
[2016-08-02] MEDS: Carvedilol 6.25 MG TAB PO SCH ×2 (08:30→17:12)
--- NOTE | 2016-08-02 13:44 | PRG ---
DATE OF SERVICE: 08/02/2016 SUBJECTIVE: Ms. Pickering is doing well. Denies any complaints, resting comfortably. Some of h er family members in the room. She is doing better with her therapy. She is also eating better. S he is complaining of some urinary symptoms. She did have a culture done and the results just came b ack with E. coli. She apparently has a history of recurrent UTIs. We will start her on Levaquin. Blood pressure is improved with adjusting her blood pressure medicines. No other concerns or questi ons. OBJECTIVE: VITAL SIGNS: She is afebrile, heart rate is 79, respiration is 18, oxygen saturation is 96%, blood pressure is 122/62. CARDIOVASCULAR: S1, S2 plus. RESPIRATORY: Normal vesicular breath sounds. ABDOMEN: Soft, nontender, bowel sounds heard in all quadrants. EXTREMITIES: Without cyanosis or clubbing. She denies any lightheadedness or dizziness with standi ng. LABORATORY VALUES: Sodium 140, potassium 4.5, BUN and creatinine is 30 and 0.74. White count is 10 .6, H\T\H is 10.9 and 33.1 with a platelet count of 181. IMPRESSION: 1. Chronic adrenal insufficiency. 2. Resolved hyponatremia. 3. Recurrent urinary tract infection. 4. Deconditioning. 5. Depression. 6. Improving p.o. intake. PLAN: 1. Continue physical therapy. 2. Nutritional support. 3. Levaquin 500 mg daily for 10 days. 4. Deep venous thrombosis and stress ulcer prophylaxis. 5. Decubitus precautions. 6. Routine laboratory values. Discussed with the family in detail and all questions answered. This morning, she walked 15 feet x2 . She descended 5 steps, ambulated to bench and back. PLAN: Continue therapy, nutritional support, and routine laboratory values, Levaquin.
[2016-08-03] MEDS: Levothyroxine Sodium 100 MCG TAB PO SCH (06:08)
[2016-08-03] MEDS: Cyproheptadine 4 MG TAB PO SCH ×2 (08:09→16:45)
[2016-08-03] MEDS: Carvedilol 6.25 MG TAB PO SCH ×2 (08:09→16:45)
[2016-08-03] MEDS: Famotidine 20 MG TAB PO SCH ×2 (08:11→20:36)
[2016-08-03] MEDS: HYDROcodone/Acetaminophen 5/325 mg Tablet PO SCH ×3 (08:11→20:37)
[2016-08-03] MEDS: Aspirin 325 mg Enteric Coated Tablet PO SCH (08:11)
[2016-08-03] MEDS: Docusate 100 MG CAP PO SCH ×2 (08:11→20:36)
[2016-08-03] MEDS: CeleCOXIB 100 MG CAP PO SCH ×2 (08:11→20:36)
[2016-08-03] MEDS: Lisinopril 10 MG TAB PO SCH ×2 (08:12→20:37)
[2016-08-03] MEDS: Megestrol Acetate 800 MG/20 ML UDCUP PO SCH ×2 (08:13→20:37)
[2016-08-03] MEDS: Multivitamin W/ Minerals 1 TAB PO SCH (08:13)
[2016-08-04] MEDS: Levothyroxine Sodium 100 MCG TAB PO SCH (05:40)
[2016-08-04] MEDS: Cyproheptadine 4 MG TAB PO SCH ×2 (07:42→16:51)
[2016-08-04] MEDS: Carvedilol 6.25 MG TAB PO SCH ×2 (07:42→16:51)
[2016-08-04] MEDS: Aspirin 325 mg Enteric Coated Tablet PO SCH (09:04)
[2016-08-04] MEDS: Multivitamin W/ Minerals 1 TAB PO SCH (09:04)
[2016-08-04] MEDS: Lisinopril 10 MG TAB PO SCH ×2 (09:04→20:30)
[2016-08-04] MEDS: Megestrol Acetate 800 MG/20 ML UDCUP PO SCH ×2 (09:05→20:36)
[2016-08-04] MEDS: HYDROcodone/Acetaminophen 5/325 mg Tablet PO SCH ×3 (09:05→20:38)
[2016-08-04] MEDS: CeleCOXIB 100 MG CAP PO SCH ×2 (09:05→20:38)
[2016-08-04] MEDS: Famotidine 20 MG TAB PO SCH ×2 (09:05→20:37)
[2016-08-04] MEDS: Docusate 100 MG CAP PO SCH ×2 (09:05→20:38)
[2016-08-04] MEDS: Ergocalciferol 1.25 MG(50,000 UNITS) CAP PO SCH (09:08)
--- NOTE | 2016-08-04 13:42 | PRG ---
DATE OF SERVICE: 08/04/2016 SUBJECTIVE: Ms. Pickering is doing the same. Denies any complaints. She is working with therap y. Discussed with therapy and her . She is still not safe to go home alone, but with family training, and with somebody there 26/09 and with DME like a manual wheelchair and a bedside commode. is apparently having the bathroom remodeled. He is aware of the risks and that she is sti ll not safe to be independent and be left alone. Her 20 days is ending on Monday, so is ray lopez to talk to our medical staff director and try to figure out if he cannot afford to pay the 20% to stay until Monday so they can get more training or whether he wants to take her home on Monday. I advised him that if it is Monday then Dr. Davison is senior executive compensation analyst, who will be doing the discharge p aperwork, but I am going to write the prescriptions for her manual wheelchair and her bedside commod e now, but if it is Monday, then I will be here and I will take care after the discharge. is also not sure whether they want to go back and follow up with Dr. Tucker and I advised him that i t is always better to stick with the physician no knows them, but if it is their preference he can m merari whatever decision that works for him. OBJECTIVE: VITAL SIGNS: She is afebrile, heart rate is 83, respirations 18, blood pressure 147/71. CARDIOVASCULAR: S1, S2 plus. RESPIRATORY: Normal vesicular breath sounds. ABDOMEN: Soft, nontender, bowel sounds heard in all quadrants. EXTREMITIES: Without cyanosis or clubbing. CENTRAL NERVOUS SYSTEM: Improving deconditioning. IMPRESSION: 1. Chronic adrenal insufficiency. 2. Resolved hyponatremia. 3. Escherichia coli urinary tract infection. 4. Improved depression. 5. Improved hypertension. 6. Chronic pain. 7. Improving nutritional status. PLAN: 1. Continue physical therapy, nutritional support. 2. Finish Levaquin. 3. DVT and stress ulcer prophylaxis. 4. Decubitus precautions. 5. Continue physical therapy. 6. Family training. 7. Write prescription for bedside commode and wheelchair. 8. Dr. Davison senior executive compensation analyst this weekend. Discussed with the in detail and all questions answe red.
[2016-08-05] MEDS: Levothyroxine Sodium 100 MCG TAB PO SCH (05:45)
[2016-08-05] MEDS: CeleCOXIB 100 MG CAP PO SCH ×2 (08:33→20:10)
[2016-08-05] MEDS: Carvedilol 6.25 MG TAB PO SCH ×2 (08:33→17:05)
[2016-08-05] MEDS: Cyproheptadine 4 MG TAB PO SCH ×2 (08:33→17:05)
[2016-08-05] MEDS: Multivitamin W/ Minerals 1 TAB PO SCH (08:34)
[2016-08-05] MEDS: Docusate 100 MG CAP PO SCH ×2 (08:34→20:10)
[2016-08-05] MEDS: Aspirin 325 mg Enteric Coated Tablet PO SCH (08:34)
[2016-08-05] MEDS: Lisinopril 10 MG TAB PO SCH ×2 (08:34→19:50)
[2016-08-05] MEDS: Megestrol Acetate 800 MG/20 ML UDCUP PO SCH ×2 (08:35→20:10)
[2016-08-05] MEDS: Famotidine 20 MG TAB PO SCH ×2 (08:35→20:11)
[2016-08-05] MEDS: HYDROcodone/Acetaminophen 5/325 mg Tablet PO SCH ×3 (08:35→20:10)
[2016-08-06] MEDS: Cyproheptadine 4 MG TAB PO SCH (06:48)
[2016-08-06] MEDS: Levothyroxine Sodium 100 MCG TAB PO SCH (06:48)
[2016-08-06 07:22] VITALS: BP 186/87; TEMP 98.5
[2016-08-06] MEDS: Docusate 100 MG CAP PO SCH (08:45)
[2016-08-06] MEDS: Carvedilol 6.25 MG TAB PO SCH (08:45)
[2016-08-06] MEDS: Lisinopril 10 MG TAB PO SCH (08:46)
[2016-08-06] MEDS: Famotidine 20 MG TAB PO SCH (08:46)
[2016-08-06] MEDS: Megestrol Acetate 800 MG/20 ML UDCUP PO SCH (08:47)
[2016-08-06] MEDS: Multivitamin W/ Minerals 1 TAB PO SCH (08:47)
[2016-08-06] MEDS: CeleCOXIB 100 MG CAP PO SCH (08:47)
[2016-08-06] MEDS: Aspirin 325 mg Enteric Coated Tablet PO SCH (08:47)
[2016-08-06] MEDS: HYDROcodone/Acetaminophen 5/325 mg Tablet PO SCH (08:48)
== END 2016-08-06 12:30 | disposition home health service (06) | DRG 948 ==
LOC: NAV ACUTE 11:10
PROVIDERS: ADMIT Internal Medicine; ATTEND Internal Medicine
DX: R53.1 Weakness (principal); E46 Unspecified protein-calorie malnutrition; E27.40 Unspecified adrenocortical insufficiency; E87.1 Hypo-osmolality and hyponatremia; N39.0 Urinary tract infection, site not specified; Z68.1 Body mass index [BMI] 19.9 or less, adult; E03.9 Hypothyroidism, unspecified; Z79.82 Long term (current) use of aspirin; F32.9 Major depressive disorder, single episode, unspecified; G89.29 Other chronic pain; I10 Essential (primary) hypertension; B96.20 Unspecified Escherichia coli [E. coli] as the cause of diseases classified elsewhere
CPT/HCPCS: 36415; 80048; 80053; 81001; 85007; 85025; 85027; 87077; 87086; 87186; A4353; G8978-GP-CK; G8979-GP-CI

== ENCOUNTER 2016-08-24 15:47 | Inpatient (IN) | payer MEDICARE ==
[2016-08-24] MEDS ORDERED: Acetaminophen 500 MG TAB PO PRN (19:58)
[2016-08-24] MEDS ORDERED: Calcium Carbonate 500 MG ChewTAB PO PRN (19:58)
[2016-08-24] MEDS ORDERED: Milk Of Magnesia 30 ML UDCUP PO PRN (19:58)
[2016-08-24] MEDS ORDERED: Non-Formulary Item 1 EACH (Megestrol Acetate [Megace] 400 MG) PO SCH (21:00)
[2016-08-24] MEDS: CeleCOXIB 100 MG CAP PO SCH (21:59)
[2016-08-24] MEDS: Docusate 100 MG CAP PO SCH (21:59)
[2016-08-24] MEDS ORDERED: AMOXicillin 500 MG CAP PO SCH (22:00)
[2016-08-24] MEDS: HYDROcodone/Acetaminophen 5/325 mg Tablet PO SCH (22:00)
[2016-08-24] MEDS: Famotidine 20 MG TAB PO SCH (22:00)
[2016-08-24] MEDS: Lisinopril 20 MG TAB PO SCH (22:01)
[2016-08-24] MEDS: Megestrol Acetate 800 MG/20 ML UDCUP PO SCH (22:01)
[2016-08-24] MEDS: AMOXicillin 250 MG CAP PO SCH (22:01)
[2016-08-25 05:27] LABS: #Basophils 0.1 thou/uL (0.0-0.2); #Eosinphils 0.1 thou/uL (0.0-0.7); #Lymphocytes 3.5 thou/uL (1.20-3.40); #Monocytes 1.1 thou/uL (0.11-0.59); #Neutrophils 5.9 thou/uL (1.40-6.50); %Eosinophils 1.4 % (0.0-10.0); %Lymphocytes 32.3 % (21.0-51.0); %Monocytes 10.1 % (0.0-10.0); %Neutrophils 55.1 % (42.0-75.0); Hemoglobin 10.8 g/dL (12.0-16.0); MDiff Complete? YES; Mean Corpuscular HGB CONC 33.1 g/dL (32.0-36.0); Mean Corpuscular Hemoglobin 34.4 pg (27.0-31.0); Mean Platelet Volume 5.7 fL (7.4-10.4); Ovalocytes SLIGHT = 2-5 cells (100X) (0-1/hpf); PLT Morphology Comment Appears Adequate; Platelet Count 258 thou/uL (130-400); RBC Distribution Width 11.8 % (11.5-14.5); Red Blood Cell (RBC) Count 3.14 mill/uL (4.20-5.40); Tear Drops SLIGHT = 2-5 cells (100X) (0-1/hpf); White Blood Cell (WBC) Count 10.7 thou/uL (4.8-10.8)
[2016-08-25 05:35] LABS: Anion Gap 13 mmol/L (10-20); BUN (Urea Nitrogen) 38 mg/dL (9.8-20.1); Calc. Creatinine Clearance 42 mL/min (70-130); Carbon Dioxide 24 mmol/L (23-31); Chloride 105 mmol/L (98-107); Estimated GFR-MDRD 79; Glucose 103 mg/dL (83-110); Potassium 4.9 mmol/L (3.5-5.1); Sodium 137 mmol/L (136-145)
[2016-08-25] MEDS: AMOXicillin 250 MG CAP PO SCH ×3 (05:59→21:19)
[2016-08-25] MEDS: Cyproheptadine 4 MG TAB PO SCH ×2 (07:30→15:38)
[2016-08-25] MEDS: Carvedilol 6.25 MG TAB PO SCH ×2 (08:15→17:59)
[2016-08-25] MEDS ORDERED: Levothyroxine Sodium 100 MCG TAB PO SCH (09:00)
[2016-08-25] MEDS ORDERED: [UNRECOGNIZED DRUG - OTHER] PO SCH (09:00)
[2016-08-25] MEDS ORDERED: Hydrocortisone 10 mg Tablet PO SCH (09:00)
[2016-08-25] MEDS: Aspirin 325 MG TAB PO SCH (09:33)
[2016-08-25] MEDS: CeleCOXIB 100 MG CAP PO SCH ×2 (09:34→21:21)
[2016-08-25] MEDS: Famotidine 20 MG TAB PO SCH ×2 (09:34→21:21)
[2016-08-25] MEDS: Docusate 100 MG CAP PO SCH ×2 (09:34→21:19)
[2016-08-25] MEDS: Folic Acid 1 MG TAB PO SCH (09:34)
[2016-08-25] MEDS: Lisinopril 20 MG TAB PO SCH ×2 (09:35→21:21)
[2016-08-25] MEDS: Cyanocobalamin (Vitamin B-12) 1,000 MCG TAB PO SCH (09:35)
[2016-08-25] MEDS: HYDROcodone/Acetaminophen 5/325 mg Tablet PO SCH ×3 (09:38→21:22)
[2016-08-25] MEDS: Megestrol Acetate 800 MG/20 ML UDCUP PO SCH ×2 (10:33→21:19)
[2016-08-25] MEDS ORDERED: Multivitamin W/ Minerals 1 TAB PO SCH (11:00)
--- NOTE | 2016-08-25 13:53 | HP ---
DATE OF ADMISSION: 08/25/2016 DATE OF EXAMINATION AND DICTATION: 08/25/2016 REASON FOR ADMISSION: Recent urinary tract infection and L1 compression fracture for physical thera py. HISTORY OF PRESENTING ILLNESS: This is a very pleasant 81-year-old frail female who was i nitially admitted about 2 months ago to [facility] due to protein calorie malnutriti on, significant deconditioning, and chronic adrenal insufficiency. She improved enough, but still w as not ready to go home, so she was transferred to [facility] and continued therapy. Her dulox etine was increased to 60 mg b.i.d. and that seemed to help. Unfortunately, her Medicare day is exp ired. Family was unable to pay for therapy as private pay and she was discharged home with some DME . She apparently noticed significant pain when she was home, but no documented falls. Also, she wa s evaluated and is noticed to have L1 compression fracture. She was admitted to the hospital. She was also noticed to have Enterococcus UTI. She was started on vancomycin and then switched to oral amoxicillin. She has been transferred here for therapy. She was deemed not to be a candidate for k yphoplasty according to records. Currently she is somnolent, but arousable. She denies any complai nts. She denies any fever or chills. Denies any chest pain or shortness of breath. PAST MEDICAL HISTORY: 1. Chronic adrenal insufficiency. 2. Hyponatremia, which had resolved in the past. 3. Hypertension. 4. Hypothyroidism. 5. Protein calorie malnutrition. 6. Depression. 7. Chronic pain. PAST SURGICAL HISTORY: 1. Hysterectomy. 2. Right humerus fracture repair. 3. Kyphoplasty. ALLERGIES: No known drug allergies. PSYCHOSOCIAL HISTORY: No tobacco, alcohol, or IV drug abuse. FAMILY HISTORY: Noncontributory. MEDICATIONS: She has been admitted here with the following medications: 1. [place] 5/325 one tablet t.i.d. 2. Norvasc 10 mg daily. 3. Amoxicillin 500 mg t.i.d., we will continue it for a total of 10-14 days. 4. Aspirin 325 daily. 5. Carvedilol 12.5 b.i.d. 6. Celebrex 100 mg b.i.d. 7. Periactin 4 mg b.i.d. 8. Cymbalta 60 mg b.i.d. 9. Drisdol 1.25 mg every 7 days. 10. Pepcid 20 mg b.i.d. 11. Solu-CORTEF/hydrocortisone 10 mg b.i.d. 12. Lisinopril 20 mg b.i.d. 13. Levothyroxine 100 mcg daily. 14. Megace 400 mg b.i.d. REVIEW OF SYSTEMS: Cardiovascular System: Denies any chest pain, shortness of breath, palpitations , PND, orthopnea, pedal edema. Respiratory System: Denies any chronic cough, expectoration or pleu ritic type chest pain. Gastrointestinal System: Denies any nausea, vomiting, diarrhea, constipatio n, hematemesis, melena, hematochezia. Genitourinary System: Denies any frequency, urgency, dysuria or hematuria. Central Nervous System: No focal numbness, weakness, fainting spells except for gen eralized weakness. PHYSICAL EXAMINATION: GENERAL: Pleasant 81-year-old female resting comfortably, somnolent, but arousable. [place] es any complaints. She responds appropriately to questions. VITAL SIGNS: She is afebrile. Heart rate is 71, respirations 17, oxygen saturation is 97%, and blo od pressure is 124/65. HEENT: Normocephalic, atraumatic. Pupils equally reactive to light and accommodation. NECK: No JVD, thyromegaly, adenopathy, throat exudates or carotid bruits. CARDIOVASCULAR SYSTEM: S1 and S2+. RESPIRATORY SYSTEM: Normal vesicular breath sounds. ABDOMEN: Soft, nontender, bowel sounds heard in all quadrants. EXTREMITIES: Without cyanosis or clubbing. CENTRAL NERVOUS SYSTEM: Generalized weakness. LABORATORY VALUES: White count is 10.7, H\T\H is 10.8 and 32.6. Sodium 137, potassium 4.9, BUN and creatinine are 38 and 0.71. IMPRESSION: 1. Resolving urinary tract infection with Enterococcus. 2. L1 compression fracture. 3. Chronic adrenal insufficiency. 4. Hypothyroidism. 5. Hypertension. 6. Protein calorie malnutrition. 7. Depression. 8. Deconditioning. PLAN: 1. Continue current medications. 2. DVT and stress ulcer prophylaxis. 3. Decubitus precautions. 4. Physical therapy and occupational therapy evaluation and treat. 5. She may benefit from a TLSO brace. 6. Pain control. 7. Nutritional support. 8. Routine laboratory values. 9. No family at the bedside. 10. Poor long-term prognosis.
[2016-08-26] MEDS: AMOXicillin 250 MG CAP PO SCH ×3 (06:16→21:04)
[2016-08-26] MEDS: Levothyroxine Sodium 100 MCG TAB PO SCH (06:16)
[2016-08-26] MEDS: Cyproheptadine 4 MG TAB PO SCH ×2 (07:44→15:35)
[2016-08-26] MEDS: Docusate 100 MG CAP PO SCH ×2 (08:07→21:03)
[2016-08-26] MEDS: Multivitamin W/ Minerals 1 TAB PO SCH (08:07)
[2016-08-26] MEDS: Famotidine 20 MG TAB PO SCH ×2 (08:07→21:03)
[2016-08-26] MEDS: CeleCOXIB 100 MG CAP PO SCH ×2 (08:07→21:03)
[2016-08-26] MEDS: Aspirin 325 MG TAB PO SCH (08:08)
[2016-08-26] MEDS: Lisinopril 20 MG TAB PO SCH ×2 (08:08→21:04)
[2016-08-26] MEDS: Carvedilol 6.25 MG TAB PO SCH ×2 (08:08→17:08)
[2016-08-26] MEDS: Folic Acid 1 MG TAB PO SCH (08:09)
[2016-08-26] MEDS: HYDROcodone/Acetaminophen 5/325 mg Tablet PO SCH ×3 (08:09→21:03)
[2016-08-26] MEDS: Megestrol Acetate 800 MG/20 ML UDCUP PO SCH ×2 (08:09→21:04)
[2016-08-26] MEDS: Cyanocobalamin (Vitamin B-12) 1,000 MCG TAB PO SCH (08:09)
--- NOTE | 2016-08-26 11:46 | PRG ---
DATE OF SERVICE: 08/26/2016 SUBJECTIVE: Ms. Pickering is doing the same. She seems to be slightly more alert today. I disc ussed with therapy and she does have a TLSO brace and instructions for it. She should be wearing it when she is up out of bed. I encouraged the patient to get out of bed and to do more and eat well, so she can go home soon. Apparently the plan is for her to go home with family apparently family wa s trained the last time, but I am not sure what happened that she ended up in the hospital so soon, but the family is going to be trained again with therapy in caring for her with her daily activities as well as getting her in and out to brace. I advised therapy that she is medically stable and I a m just waiting for them to tell me when she is physically safe and stable to go home and then we ruchi l discharge her home. OBJECTIVE: VITAL SIGNS: She is afebrile, heart rate is 74, respiration is 18, oxygen saturation is 95%, blood pressure 150/71. CARDIOVASCULAR: S1, S2 plus. RESPIRATORY: Normal vesicular breath sounds. ABDOMEN: Soft, nontender, bowel sounds heard in all quadrants. EXTREMITIES: Without cyanosis or clubbing. IMPRESSION: 1. Chronic adrenal insufficiency. 2. L1 compression fracture. 3. Protein calorie malnutrition. 4. Depression. 5. Chronic pain. 6. Hypertension. PLAN: 1. Continue current medications. 2. TLSO brace when up and out of bed. 3. DVT and stress ulcer prophylaxis. 4. Encourage p.o. intake. 5. Decubitus precautions. 6. Routine laboratory values. 7. PT and OT. 8. Medically stable, when stable and safe from therapy standpoint we will discharge her home. 9. Dr. Davison micromatic hone operator this weekend.
[2016-08-27] MEDS: Levothyroxine Sodium 100 MCG TAB PO SCH (05:54)
[2016-08-27] MEDS: AMOXicillin 250 MG CAP PO SCH ×3 (05:54→22:28)
[2016-08-27] MEDS: Cyproheptadine 4 MG TAB PO SCH ×2 (08:19→17:02)
[2016-08-27] MEDS: Carvedilol 6.25 MG TAB PO SCH ×2 (08:19→17:03)
[2016-08-27] MEDS: Aspirin 325 MG TAB PO SCH (08:20)
[2016-08-27] MEDS: CeleCOXIB 100 MG CAP PO SCH ×2 (08:20→22:30)
[2016-08-27] MEDS: Folic Acid 1 MG TAB PO SCH (08:21)
[2016-08-27] MEDS: HYDROcodone/Acetaminophen 5/325 mg Tablet PO SCH ×3 (08:21→22:34)
[2016-08-27] MEDS: Famotidine 20 MG TAB PO SCH ×2 (08:21→22:30)
[2016-08-27] MEDS: Docusate 100 MG CAP PO SCH ×2 (08:21→22:28)
[2016-08-27] MEDS: Cyanocobalamin (Vitamin B-12) 1,000 MCG TAB PO SCH (08:21)
[2016-08-27] MEDS: Lisinopril 20 MG TAB PO SCH ×2 (08:22→22:28)
[2016-08-27] MEDS: Megestrol Acetate 800 MG/20 ML UDCUP PO SCH ×2 (08:23→22:29)
[2016-08-27] MEDS: Polyethylene Glycol 3350 17 GM Packet PO PRN (08:23)
[2016-08-27] MEDS: Multivitamin W/ Minerals 1 TAB PO SCH (08:23)
--- NOTE | 2016-08-27 11:42 | PRG ---
MEDICAL PROGRESS NOTE DATE OF PROGRESS NOTE: 08/27/2016 SUBJECTIVE: The patient feels better, more awake and alert last time in the hospital still very wea k, decreasing back pain. Apparently, she was falling at home after last admission. OBJECTIVE: VITAL SIGNS: Shows blood pressure is 123/60, temperature 98, pulse 74, respirations 18, O2 sat 96%. LUNGS: Clear. CARDIAC: Showed regular rhythm. ABDOMEN: Soft and nontender. SKIN AND EXTREMITIES: Showed no edema. NEUROLOGIC: Shows no focal findings only diffuse weakness. ASSESSMENT: Chronic renal insufficiency, improving L1 compression fractures, improving deconditioni ng, was still very weak and stable depression. PLAN: Continue PT, OT continued DVT and stress ulcer prophylaxis. Continue to wear a brace at all times when out of bed.
[2016-08-28] MEDS: Levothyroxine Sodium 100 MCG TAB PO SCH (06:13)
[2016-08-28] MEDS: AMOXicillin 250 MG CAP PO SCH ×3 (06:13→21:47)
[2016-08-28] MEDS: Carvedilol 6.25 MG TAB PO SCH ×2 (08:22→21:47)
[2016-08-28] MEDS: Cyproheptadine 4 MG TAB PO SCH ×2 (08:22→21:47)
[2016-08-28] MEDS: Aspirin 325 MG TAB PO SCH (08:23)
[2016-08-28] MEDS: Cyanocobalamin (Vitamin B-12) 1,000 MCG TAB PO SCH (08:24)
[2016-08-28] MEDS: Docusate 100 MG CAP PO SCH ×2 (08:24→21:47)
[2016-08-28] MEDS: Multivitamin W/ Minerals 1 TAB PO SCH (08:25)
[2016-08-28] MEDS: Megestrol Acetate 800 MG/20 ML UDCUP PO SCH ×2 (08:25→21:46)
[2016-08-28] MEDS: Lisinopril 20 MG TAB PO SCH ×2 (08:25→21:49)
[2016-08-28] MEDS: Folic Acid 1 MG TAB PO SCH (08:26)
[2016-08-28] MEDS: Famotidine 20 MG TAB PO SCH ×2 (08:26→21:49)
[2016-08-28] MEDS: HYDROcodone/Acetaminophen 5/325 mg Tablet PO SCH ×3 (08:27→21:49)
[2016-08-28] MEDS: Polyethylene Glycol 3350 17 GM Packet PO PRN (08:27)
[2016-08-28] MEDS: CeleCOXIB 100 MG CAP PO SCH ×2 (08:33→21:47)
--- NOTE | 2016-08-28 09:34 | PRG ---
DATE OF SERVICE: 08/28/2016 SUBJECTIVE: The patient lying in bed, feels well with no complaints. Has not been out of bed; son tolbert, because her TLSO brace is not fitting. She has no complaints at rest. OBJECTIVE: Blood pressure 123/60, pulse 68, O2 sats 96%, respirations 18, afebrile. Lungs are azra r. Cardiac examination shows regular rhythm. Abdomen is soft and nontender. Back shows palpable m uscle spasms and tenderness to palpation. ASSESSMENT: 1. L1 compression fracture, stable pain at rest. 2. Chronic renal insufficiency, stable. 3. Deconditioning, slowly improving. 4. Stable depression. PLAN: 1. Continue PT, OT. 2. Continue DVT and stress ulcer prophylaxis. 3. Remain in the bed as brace does not fit and needs to be adjusted.
[2016-08-29] MEDS ORDERED: AMOXicillin 250 MG CAP ONE (06:05)
[2016-08-29] MEDS: AMOXicillin 250 MG CAP PO SCH ×3 (06:28→20:40)
[2016-08-29] MEDS: Levothyroxine Sodium 100 MCG TAB PO SCH (06:29)
[2016-08-29] MEDS: Cyproheptadine 4 MG TAB PO SCH ×2 (07:30→16:35)
[2016-08-29] MEDS: CeleCOXIB 100 MG CAP PO SCH ×2 (08:56→20:31)
[2016-08-29] MEDS: Lisinopril 20 MG TAB PO SCH ×2 (08:57→20:40)
[2016-08-29] MEDS: Famotidine 20 MG TAB PO SCH ×2 (08:57→20:31)
[2016-08-29] MEDS: Aspirin 325 MG TAB PO SCH (08:58)
[2016-08-29] MEDS: Carvedilol 6.25 MG TAB PO SCH ×2 (08:58→16:35)
[2016-08-29] MEDS: Megestrol Acetate 800 MG/20 ML UDCUP PO SCH ×2 (08:58→20:41)
[2016-08-29] MEDS: Multivitamin W/ Minerals 1 TAB PO SCH (08:58)
[2016-08-29] MEDS: Docusate 100 MG CAP PO SCH ×2 (08:59→20:31)
[2016-08-29] MEDS: HYDROcodone/Acetaminophen 5/325 mg Tablet PO SCH ×3 (08:59→20:31)
[2016-08-29] MEDS: Folic Acid 1 MG TAB PO SCH (08:59)
[2016-08-29] MEDS: Polyethylene Glycol 3350 17 GM Packet PO PRN (08:59)
[2016-08-29] MEDS: Cyanocobalamin (Vitamin B-12) 1,000 MCG TAB PO SCH (08:59)
[2016-08-29] MEDS: Acetaminophen 500 MG TAB PO PRN (14:09)
--- NOTE | 2016-08-29 21:08 | PRG ---
DATE OF SERVICE: 08/29/2016 SUBJECTIVE: Ms. Pickering is doing well. Denies any complaints. She is sitting up in her chair with her brace on. Discussed with nursing and they have not seen any family members, they have sup posed to train the family members on having her wearing the brace on and off. She apparently was co mplaining of pain to the nurse, but when I went and checked with her, she was comfortable and when I asked her if she was in any pain she states that she was not, when I asked if she wanted to make an y changes to her pain medications. She stated that the current medicines are working fine. OBJECTIVE: VITAL SIGNS: She is afebrile, heart rate is 73, respirations are 17, oxygen saturation 93%, and blo od pressure is 97/54. CARDIOVASCULAR: S1, S2 plus. RESPIRATORY: Normal vesicular breath sounds. ABDOMEN: Soft, nontender, bowel sounds heard in all quadrants. EXTREMITIES: Without cyanosis or clubbing. TLSO brace in place. IMPRESSION: 1. L1 compression fracture. 2. Chronic adrenal insufficiency. 3. Improving deconditioning. 4. Depression. 5. Protein-calorie malnutrition. PLAN: 1. Continue nutritional support. 2. Pain control. 3. Physical therapy. 4. TLSO brace. 5. DVT and stress ulcer prophylaxis. 6. Decubitus precautions. 7. Train family.
[2016-08-30] MEDS: AMOXicillin 250 MG CAP PO SCH ×3 (06:14→21:46)
[2016-08-30] MEDS: Levothyroxine Sodium 100 MCG TAB PO SCH (06:15)
[2016-08-30] MEDS: Aspirin 325 MG TAB PO SCH (08:30)
[2016-08-30] MEDS: Famotidine 20 MG TAB PO SCH ×2 (08:31→21:46)
[2016-08-30] MEDS: Cyproheptadine 4 MG TAB PO SCH ×2 (08:31→16:32)
[2016-08-30] MEDS: CeleCOXIB 100 MG CAP PO SCH ×2 (08:31→21:46)
[2016-08-30] MEDS: Acetaminophen 500 MG TAB PO PRN (08:31)
[2016-08-30] MEDS: Docusate 100 MG CAP PO SCH ×2 (08:31→21:46)
[2016-08-30] MEDS: Multivitamin W/ Minerals 1 TAB PO SCH (08:31)
[2016-08-30] MEDS: Carvedilol 6.25 MG TAB PO SCH ×2 (08:31→17:32)
[2016-08-30] MEDS: Folic Acid 1 MG TAB PO SCH (08:31)
[2016-08-30] MEDS: Megestrol Acetate 800 MG/20 ML UDCUP PO SCH ×2 (08:32→21:47)
[2016-08-30] MEDS: Lisinopril 20 MG TAB PO SCH ×2 (08:32→21:46)
[2016-08-30] MEDS: Cyanocobalamin (Vitamin B-12) 1,000 MCG TAB PO SCH (08:32)
[2016-08-30] MEDS: HYDROcodone/Acetaminophen 5/325 mg Tablet PO SCH ×3 (08:33→21:47)
[2016-08-31 05:15] LABS: #Eosinphils 0.1 thou/uL (0.0-0.7); #Lymphocytes 1.9 thou/uL (1.20-3.40); #Monocytes 1.2 thou/uL (0.11-0.59); #Neutrophils 8.3 thou/uL (1.40-6.50); %Basophils 0.3 % (0.0-1.0); %Eosinophils 0.7 % (0.0-10.0); %Lymphocytes 16.3 % (21.0-51.0); %Monocytes 10.7 % (0.0-10.0); Anisocytosis MODERATE=16-30 cells (100X) (0-5/hpf); Elliptocytes SLIGHT = 2-5 cells (100X) (0-1/hpf); Hemoglobin 9.6 g/dL (12.0-16.0); MDiff Complete? YES; Macrocytosis MODERATE=16-30 cells (100X) (0-5/hpf); Mean Corpuscular HGB CONC 33.3 g/dL (32.0-36.0); Mean Corpuscular Hemoglobin 34.8 pg (27.0-31.0); Mean Platelet Volume 5.7 fL (7.4-10.4); Ovalocytes SLIGHT = 2-5 cells (100X) (0-1/hpf); PLT Morphology Comment Appears Adequate; Platelet Count 221 thou/uL (130-400); RBC Distribution Width 12.1 % (11.5-14.5); Red Blood Cell (RBC) Count 2.75 mill/uL (4.20-5.40); Tear Drops SLIGHT = 2-5 cells (100X) (0-1/hpf); White Blood Cell (WBC) Count 11.5 thou/uL (4.8-10.8)
[2016-08-31 05:27] LABS: Anion Gap 12 mmol/L (10-20); BUN (Urea Nitrogen) 75 mg/dL (9.8-20.1); Calc. Creatinine Clearance 31 mL/min (70-130); Calcium 8.9 mg/dL (7.8-10.44); Carbon Dioxide 27 mmol/L (23-31); Chloride 103 mmol/L (98-107); Estimated GFR-MDRD 54; Glucose 125 mg/dL (83-110); Potassium 5.3 mmol/L (3.5-5.1); Sodium 137 mmol/L (136-145)
[2016-08-31] MEDS: Levothyroxine Sodium 100 MCG TAB PO SCH (05:51)
[2016-08-31] MEDS: AMOXicillin 250 MG CAP PO SCH ×3 (05:51→22:12)
[2016-08-31] MEDS: Cyproheptadine 4 MG TAB PO SCH ×2 (08:04→16:55)
[2016-08-31] MEDS: CeleCOXIB 100 MG CAP PO SCH ×2 (08:04→20:36)
[2016-08-31] MEDS: Aspirin 325 MG TAB PO SCH (08:04)
[2016-08-31] MEDS: Carvedilol 6.25 MG TAB PO SCH ×2 (08:04→16:55)
[2016-08-31] MEDS: Folic Acid 1 MG TAB PO SCH (08:05)
[2016-08-31] MEDS: Ergocalciferol 1.25 MG(50,000 UNITS) CAP PO SCH (08:05)
[2016-08-31] MEDS: HYDROcodone/Acetaminophen 5/325 mg Tablet PO SCH ×3 (08:05→20:37)
[2016-08-31] MEDS: Famotidine 20 MG TAB PO SCH ×2 (08:05→20:36)
[2016-08-31] MEDS: Cyanocobalamin (Vitamin B-12) 1,000 MCG TAB PO SCH (08:05)
[2016-08-31] MEDS: Docusate 100 MG CAP PO SCH ×2 (08:05→20:36)
[2016-08-31] MEDS: Megestrol Acetate 800 MG/20 ML UDCUP PO SCH ×2 (08:06→20:37)
[2016-08-31] MEDS: Lisinopril 20 MG TAB PO SCH (08:06)
[2016-08-31] MEDS: Multivitamin W/ Minerals 1 TAB PO SCH (08:07)
[2016-08-31] MEDS: Acetaminophen 500 MG TAB PO PRN (19:46)
[2016-09-01 05:48] LABS: Anion Gap 14 mmol/L (10-20); BUN (Urea Nitrogen) 64 mg/dL (9.8-20.1); Calc. Creatinine Clearance 39 mL/min (70-130); Carbon Dioxide 23 mmol/L (23-31); Chloride 106 mmol/L (98-107); Estimated GFR-MDRD 71; Glucose 100 mg/dL (83-110); Potassium 4.8 mmol/L (3.5-5.1); Sodium 138 mmol/L (136-145)
[2016-09-01] MEDS: Levothyroxine Sodium 100 MCG TAB PO SCH (05:59)
[2016-09-01] MEDS: AMOXicillin 250 MG CAP PO SCH ×3 (05:59→21:01)
[2016-09-01] MEDS: Carvedilol 6.25 MG TAB PO SCH ×2 (08:08→16:36)
[2016-09-01] MEDS: Megestrol Acetate 800 MG/20 ML UDCUP PO SCH ×2 (08:08→21:03)
[2016-09-01] MEDS: Cyproheptadine 4 MG TAB PO SCH ×2 (08:08→16:36)
[2016-09-01] MEDS: Aspirin 325 MG TAB PO SCH (08:09)
[2016-09-01] MEDS: Docusate 100 MG CAP PO SCH ×2 (08:09→21:03)
[2016-09-01] MEDS: HYDROcodone/Acetaminophen 5/325 mg Tablet PO SCH ×3 (08:09→21:02)
[2016-09-01] MEDS: Famotidine 20 MG TAB PO SCH ×2 (08:09→21:02)
[2016-09-01] MEDS: CeleCOXIB 100 MG CAP PO SCH ×2 (08:09→21:03)
[2016-09-01] MEDS: Folic Acid 1 MG TAB PO SCH (08:09)
[2016-09-01] MEDS: Cyanocobalamin (Vitamin B-12) 1,000 MCG TAB PO SCH (08:09)
[2016-09-01] MEDS: Polyethylene Glycol 3350 17 GM Packet PO PRN (08:10)
[2016-09-01] MEDS: Multivitamin W/ Minerals 1 TAB PO SCH (08:10)
[2016-09-02] MEDS: AMOXicillin 250 MG CAP PO SCH ×3 (06:06→21:10)
[2016-09-02] MEDS: Levothyroxine Sodium 100 MCG TAB PO SCH (06:06)
[2016-09-02 06:36] LABS: #Basophils 0.1 thou/uL (0.0-0.2); #Eosinphils 0.1 thou/uL (0.0-0.7); #Lymphocytes 2.2 thou/uL (1.20-3.40); #Monocytes 1.2 thou/uL (0.11-0.59); #Neutrophils 7.9 thou/uL (1.40-6.50); %Basophils 0.6 % (0.0-1.0); %Eosinophils 0.6 % (0.0-10.0); %Lymphocytes 19.1 % (21.0-51.0); %Monocytes 10.7 % (0.0-10.0); Hemoglobin 9.7 g/dL (12.0-16.0); Mean Corpuscular HGB CONC 32.8 g/dL (32.0-36.0); Mean Corpuscular Hemoglobin 34.5 pg (27.0-31.0); Mean Platelet Volume 5.8 fL (7.4-10.4); Platelet Count 225 thou/uL (130-400); RBC Distribution Width 12.7 % (11.5-14.5); White Blood Cell (WBC) Count 11.4 thou/uL (4.8-10.8)
[2016-09-02 06:37] LABS: Anisocytosis SLIGHT = 6-15 cells (100X) (0-5/hpf); Hypochromia SLIGHT = 6-15 cells (100X) (0-5/hpf); MDiff Complete? YES; Macrocytosis SLIGHT = 6-15 cells (100X) (0-5/hpf); PLT Morphology Comment Appears Adequate
[2016-09-02] MEDS: Cyproheptadine 4 MG TAB PO SCH ×2 (07:40→16:32)
[2016-09-02] MEDS: Carvedilol 6.25 MG TAB PO SCH ×2 (07:41→17:31)
[2016-09-02] MEDS: Cyanocobalamin (Vitamin B-12) 1,000 MCG TAB PO SCH (09:42)
[2016-09-02] MEDS: CeleCOXIB 100 MG CAP PO SCH ×2 (09:42→21:10)
[2016-09-02] MEDS: Folic Acid 1 MG TAB PO SCH (09:42)
[2016-09-02] MEDS: Aspirin 325 MG TAB PO SCH (09:42)
[2016-09-02] MEDS: HYDROcodone/Acetaminophen 5/325 mg Tablet PO SCH ×3 (09:43→21:11)
[2016-09-02] MEDS: Megestrol Acetate 800 MG/20 ML UDCUP PO SCH (09:43)
[2016-09-02] MEDS: Multivitamin W/ Minerals 1 TAB PO SCH (09:43)
[2016-09-02] MEDS: Docusate 100 MG CAP PO SCH ×2 (09:43→21:11)
[2016-09-02] MEDS: Famotidine 20 MG TAB PO SCH ×2 (09:48→21:11)
[2016-09-02 19:27] LABS: Vitamin B12 Greater than 2000 pg/mL (211-911)
[2016-09-02] MEDS: Megestrol Acetate 400 MG/10 ML UDCUP PO SCH (21:09)
[2016-09-02] MEDS: Donepezil HCl 5 MG TAB PO SCH (21:11)
[2016-09-03] MEDS: Levothyroxine Sodium 100 MCG TAB PO SCH (06:02)
[2016-09-03] MEDS: AMOXicillin 250 MG CAP PO SCH ×3 (06:02→21:06)
[2016-09-03] MEDS: Cyproheptadine 4 MG TAB PO SCH ×2 (08:00→16:41)
[2016-09-03] MEDS: Carvedilol 6.25 MG TAB PO SCH ×2 (08:00→16:41)
[2016-09-03] MEDS: Multivitamin W/ Minerals 1 TAB PO SCH (09:31)
[2016-09-03] MEDS: Cyanocobalamin (Vitamin B-12) 1,000 MCG TAB PO SCH (09:31)
[2016-09-03] MEDS: CeleCOXIB 100 MG CAP PO SCH ×2 (09:32→20:09)
[2016-09-03] MEDS: Famotidine 20 MG TAB PO SCH ×2 (09:33→20:09)
[2016-09-03] MEDS: Folic Acid 1 MG TAB PO SCH (09:33)
[2016-09-03] MEDS: Docusate 100 MG CAP PO SCH ×2 (09:34→20:09)
[2016-09-03] MEDS: Megestrol Acetate 400 MG/10 ML UDCUP PO SCH ×2 (09:34→20:09)
[2016-09-03] MEDS: HYDROcodone/Acetaminophen 5/325 mg Tablet PO SCH ×3 (09:34→20:08)
[2016-09-03] MEDS: Aspirin 325 MG TAB PO SCH (09:34)
[2016-09-03] MEDS: Donepezil HCl 5 MG TAB PO SCH (20:10)
[2016-09-04] MEDS: Levothyroxine Sodium 100 MCG TAB PO SCH (06:11)
[2016-09-04] MEDS: AMOXicillin 250 MG CAP PO SCH ×3 (06:11→21:36)
[2016-09-04 06:37] VITALS: BMI 15.8
[2016-09-04] MEDS: Famotidine 20 MG TAB PO SCH ×2 (10:01→21:34)
[2016-09-04] MEDS: Megestrol Acetate 400 MG/10 ML UDCUP PO SCH ×2 (10:01→21:33)
[2016-09-04] MEDS: Aspirin 325 MG TAB PO SCH (10:01)
[2016-09-04] MEDS: Carvedilol 6.25 MG TAB PO SCH ×2 (10:02→17:01)
[2016-09-04] MEDS: Multivitamin W/ Minerals 1 TAB PO SCH (10:02)
[2016-09-04] MEDS: Docusate 100 MG CAP PO SCH ×2 (10:03→21:33)
[2016-09-04] MEDS: CeleCOXIB 100 MG CAP PO SCH ×2 (10:03→21:33)
[2016-09-04] MEDS: Cyanocobalamin (Vitamin B-12) 1,000 MCG TAB PO SCH (10:04)
[2016-09-04] MEDS: Folic Acid 1 MG TAB PO SCH (10:04)
[2016-09-04] MEDS: HYDROcodone/Acetaminophen 5/325 mg Tablet PO SCH ×3 (10:04→21:34)
[2016-09-04] MEDS: Cyproheptadine 4 MG TAB PO SCH ×2 (10:16→17:00)
[2016-09-04] MEDS: Donepezil HCl 5 MG TAB PO SCH (21:33)
[2016-09-05] MEDS: AMOXicillin 250 MG CAP PO SCH (05:59)
[2016-09-05] MEDS: Levothyroxine Sodium 100 MCG TAB PO SCH (05:59)
[2016-09-05] MEDS: Cyproheptadine 4 MG TAB PO SCH ×2 (06:31→17:03)
[2016-09-05] MEDS: Docusate 100 MG CAP PO SCH ×2 (09:02→20:05)
[2016-09-05] MEDS: Cyanocobalamin (Vitamin B-12) 1,000 MCG TAB PO SCH (09:02)
[2016-09-05] MEDS: Folic Acid 1 MG TAB PO SCH (09:02)
[2016-09-05] MEDS: Megestrol Acetate 400 MG/10 ML UDCUP PO SCH ×2 (09:03→20:09)
[2016-09-05] MEDS: Famotidine 20 MG TAB PO SCH ×2 (09:03→20:04)
[2016-09-05] MEDS: Multivitamin W/ Minerals 1 TAB PO SCH (09:03)
[2016-09-05] MEDS: CeleCOXIB 100 MG CAP PO SCH ×2 (09:03→20:04)
[2016-09-05] MEDS: HYDROcodone/Acetaminophen 5/325 mg Tablet PO SCH ×3 (09:04→20:03)
[2016-09-05] MEDS: Carvedilol 6.25 MG TAB PO SCH ×2 (09:09→17:03)
[2016-09-05] MEDS: Aspirin 325 MG TAB PO SCH (09:13)
[2016-09-05] MEDS: Polyethylene Glycol 3350 17 GM Packet PO PRN (10:54)
[2016-09-05] MEDS: Donepezil HCl 5 MG TAB PO SCH (20:04)
[2016-09-06] MEDS: Levothyroxine Sodium 100 MCG TAB PO SCH (06:32)
[2016-09-06] MEDS: Cyproheptadine 4 MG TAB PO SCH ×2 (08:13→16:59)
[2016-09-06] MEDS: Carvedilol 6.25 MG TAB PO SCH ×2 (08:13→16:59)
[2016-09-06] MEDS: Aspirin 325 MG TAB PO SCH (08:14)
[2016-09-06] MEDS: CeleCOXIB 100 MG CAP PO SCH ×2 (08:14→21:20)
[2016-09-06] MEDS: Cyanocobalamin (Vitamin B-12) 1,000 MCG TAB PO SCH (08:14)
[2016-09-06] MEDS: Docusate 100 MG CAP PO SCH ×2 (08:14→21:20)
[2016-09-06] MEDS: Folic Acid 1 MG TAB PO SCH (08:15)
[2016-09-06] MEDS: HYDROcodone/Acetaminophen 5/325 mg Tablet PO SCH ×3 (08:15→21:20)
[2016-09-06] MEDS: Famotidine 20 MG TAB PO SCH ×2 (08:15→21:19)
[2016-09-06] MEDS: Megestrol Acetate 400 MG/10 ML UDCUP PO SCH ×2 (08:16→21:19)
[2016-09-06] MEDS: Multivitamin W/ Minerals 1 TAB PO SCH (08:16)
[2016-09-06] MEDS: Donepezil HCl 5 MG TAB PO SCH (21:20)
[2016-09-07] MEDS: Levothyroxine Sodium 100 MCG TAB PO SCH (06:21)
[2016-09-07] MEDS: Cyproheptadine 4 MG TAB PO SCH ×2 (07:58→15:15)
[2016-09-07] MEDS: Megestrol Acetate 400 MG/10 ML UDCUP PO SCH (08:58)
[2016-09-07] MEDS: Multivitamin W/ Minerals 1 TAB PO SCH (08:59)
[2016-09-07] MEDS: Cyanocobalamin (Vitamin B-12) 1,000 MCG TAB PO SCH (08:59)
[2016-09-07] MEDS: Famotidine 20 MG TAB PO SCH (08:59)
[2016-09-07] MEDS: Aspirin 325 MG TAB PO SCH (08:59)
[2016-09-07] MEDS: CeleCOXIB 100 MG CAP PO SCH (08:59)
[2016-09-07] MEDS: Carvedilol 6.25 MG TAB PO SCH (08:59)
[2016-09-07 09:00] VITALS: BP 159/74
[2016-09-07] MEDS: Ergocalciferol 1.25 MG(50,000 UNITS) CAP PO SCH (09:00)
[2016-09-07] MEDS: HYDROcodone/Acetaminophen 5/325 mg Tablet PO SCH ×2 (09:00→14:32)
[2016-09-07] MEDS: Folic Acid 1 MG TAB PO SCH (09:00)
[2016-09-07] MEDS: Docusate 100 MG CAP PO SCH (09:00)
[2016-09-07 09:40] VITALS: TEMP 98.3
== END 2016-09-07 15:15 | disposition home health service (06) | DRG 948 ==
LOC: NAV ACUTE 15:47
PROVIDERS: ADMIT Internal Medicine; ATTEND Internal Medicine
DX: R53.1 Weakness (principal); E46 Unspecified protein-calorie malnutrition; E27.40 Unspecified adrenocortical insufficiency; E87.5 Hyperkalemia; F03.90 Unspecified dementia, unspecified severity, without behavioral disturbance, psychotic disturbance, mood disturbance, and anxiety; N39.0 Urinary tract infection, site not specified; Z68.1 Body mass index [BMI] 19.9 or less, adult; F32.9 Major depressive disorder, single episode, unspecified; S32.019D Unspecified fracture of first lumbar vertebra, subsequent encounter for fracture with routine healing; W19.XXXD Unspecified fall, subsequent encounter; B95.2 Enterococcus as the cause of diseases classified elsewhere; Z90.710 Acquired absence of both cervix and uterus; I12.9 Hypertensive chronic kidney disease with stage 1 through stage 4 chronic kidney disease, or unspecified chronic kidney disease; N18.9 Chronic kidney disease, unspecified; E03.9 Hypothyroidism, unspecified; Z79.82 Long term (current) use of aspirin
CPT/HCPCS: 36415; 80048; 82607; 82746; 84443; 85025; 86592; 87086; A4353; G8978-GP-CM; G8979-GP-CK; G8987-GO-CM; G8988-GO-CI